=== PATIENT | male | born 1960 | race Caucasian/White ===

== ENCOUNTER → 2020-01-29 | Outpatient (CLI) | payer BC ==
[~2020-01-29] MED LIST: CATHETER FLUSH 10 ML SYR IV PRN; CIPR-17 PO; METR500T PO; OXYC-12 PO
--- NOTE | 2020-01-29 12:42 | Cardiology Stress Test Report ---
Stress Test Report Date of Procedure/Referring: Date of Procedure: Jan 29, 2020 PCP Antonio Nuñez DO Admitting Physician Antonio Nuñez DO Indications: Hypertension Summary: Patient receive a resting and stress dose of Myoview, images were acquired and reviewed in the short axis view, horizontal long axis view and vertical long axis view. TID: 1.09 SSS: 0 SDS: 0 EF: 61 1. Diaphragmatic attenuation with typical male pattern, mild decreased uptake at the inferior wall, no signal can ischemia was noted. 2. Normal left ventricular size and systolic function calculated ejection fraction 61 percent RANDOLPH EID MD Jan 29, 2020 12:42
== END ==
LOC: CARD 06:33
PROVIDERS: ATTEND Internal Medicine
DX: I10 Essential (primary) hypertension (principal)
CPT/HCPCS: 78452; 93017; A9502

== ENCOUNTER → 2022-09-28 | Outpatient (CLI) | payer BC ==
[~2022-09-28] MED LIST changes: -CATHETER FLUSH 10 ML SYR IV PRN
== END ==
LOC: CARD 07:29
PROVIDERS: ATTEND Internal Medicine
DX: R07.89 Other chest pain (principal)
CPT/HCPCS: 93017

== ENCOUNTER → 2022-10-14 | Outpatient (CLI) | payer BC ==
[~2022-10-14] MED LIST changes: +IOHEXOL 350 MG/ML 100 ML (OMNIPAQUE 350) VIAL IV ONE; +NITROGLYCERIN 0.4 MG SL TABS BTL 25'S SL ONE; +NS 100 ML (IVPB) BAG IV ONE
[2022-10-14 15:00] VITALS: BP 116/64
[2022-10-14 15:15] VITALS: BP 127/68
[2022-10-14 15:25] VITALS: BP 117/72
[2022-10-14 15:30] VITALS: BP 119/70
--- NOTE | 2022-10-14 16:48 | Diagnostic Imaging Report ---
EXAMINATION: CTA of the coronary arteries. TECHNIQUE: Contrast enhanced thin section helical images were obtained through the heart and coronary arteries with intravenous contrast timed for the optimal opacification of the coronary arterial structures per gated CTA protocol. Post-processing, reconstructions and interpretation of angiographic images of the vessels was performed. 3D MIP reconstructions were performed and reviewed. All CT scans use one or more of the following dose optimizing techniques: automated exposure control, MA and/or KvP adjustment based on a patient size and exam type, or iterative reconstruction. HISTORY: Coronary artery disease COMPARISON: None available. FINDINGS: There is circumferential calcified and noncalcified plaque in the left main coronary artery resulting in approximately 25% stenosis. There is a 75% stenosis of the proximal left anterior descending artery. There is additional plaque in the distal left anterior descending artery with approximately 30% stenosis. There is moderate stenosis of 60% of the origin of the circumflex artery. There is multifocal mild stenosis throughout the remainder of the circumflex artery. The right coronary artery is a small vessel with calcified plaque proximally resulting in at least mild stenosis but the lumen is partially obscured by the blooming artifact from calcifications. The coronary arteries are right dominant. There is no anomalous coronary artery origin or course. There is no myocardial bridging. There is no ventricular dilation or hypertrophy. Both atria are normal in size. Aorta is normal in caliber. There is no edema or pneumonia. No pleural effusion. No pneumothorax. No suspicious nodules. No pericardial effusion. There is no mediastinal lymphadenopathy. Limited views of the upper abdomen are unremarkable. There are no suspicious osseus lesions. IMPRESSION: 1. Calcified and noncalcified plaque in the left main coronary artery resulting in approximately 25% stenosis. 2. Multifocal disease in the left anterior descending artery with 75% stenosis proximally. 3. Moderate stenosis of approximately 60% of the origin of the circumflex artery. 4. Right coronary artery is a small vessel with calcified plaque proximally obscuring the lumen due to blooming artifact. Dictated by: Dictated on workstation # [id number]
== END ==
LOC: RAD 14:22
PROVIDERS: ATTEND Internal Medicine Cardiovascular Disease
DX: I25.10 Atherosclerotic heart disease of native coronary artery without angina pectoris (principal)
CPT/HCPCS: 75574

== ENCOUNTER 2022-10-21 09:00 | Day surgery (SDC) | payer BC ==
[~2022-10-21] VITALS: Ht 177.8 cm; Wt 72.3 kg
[2022-10-21] VITALS (8 sets, daily range): BP systolic 114–148; BP diastolic 63–91
[2022-10-21 07:22] LABS: HEMATOCRIT 44 % (40-54); HEMOGLOBIN 14.6 g/dL (13.3-17.7); MEAN CORPUSCULAR HEMOGLOBIN 29 pg (25-34); MEAN CORPUSCULAR HGB CONC 33 g/dL (32-36); MEAN CORPUSCULAR VOLUME 88 fL (80-99); MEAN PLATELET VOLUME 9.4 fL (9.0-12.2); PLATELET COUNT 221 10^3/uL (130-400); WHITE BLOOD COUNT 5.5 10^3/uL (4.3-11.0)
--- NOTE | 2022-10-21 07:43 | Diagnostic Imaging Report ---
EXAM: CHEST 1 VIEW, AP/PA ONLY INDICATION: Coronary artery disease. Chest pain. COMPARISON: None. FINDINGS: Normal heart size and central pulmonary vascularity. Lungs are clear. No pleural effusion or pneumothorax. No acute osseous findings. IMPRESSION: No acute cardiopulmonary findings. Dictated by: Dictated on workstation # [id number]
[2022-10-21 07:47] LABS: ALANINE AMINOTRANSFERASE 36 U/L (0-55); ALBUMIN 4.8 GM/DL (3.2-4.5); ALKALINE PHOSPHATASE 86 U/L (40-136); BUN/CREATININE RATIO 11; CALCIUM 9.4 MG/DL (8.5-10.1); CARBON DIOXIDE 27 MMOL/L (21-32); CHLORIDE 105 MMOL/L (98-107); CHOLESTEROL 127 MG/DL (< 200); CREATININE SERUM 0.98 MG/DL (0.60-1.30); GFR ESTIMATED 87; GLUCOSE 107 MG/DL (70-105); HDL CHOLESTEROL 38 MG/DL (40-60); POTASSIUM 3.8 MMOL/L (3.6-5.0); SODIUM 141 MMOL/L (135-145); TOTAL PROTEIN 7.9 GM/DL (6.4-8.2); TRIGLYCERIDES 87 MG/DL (<150); VLDL CHOLESTEROL 17 MG/DL (5-40)
[2022-10-21 07:53] LABS: BACTERIA,URINE NEGATIVE /HPF; BILIRUBIN,URINE NEGATIVE (NEGATIVE); CLARITY,URINE CLEAR; COLOR,URINE YELLOW; GLUCOSE, URINE (UA) NEGATIVE (NEGATIVE); KETONES,URINE NEGATIVE (NEGATIVE); LEUKOCYTE ESTERASE ,URINE NEGATIVE (NEGATIVE); NITRITE,URINE NEGATIVE (NEGATIVE); PROTEIN,URINE NEGATIVE (NEGATIVE); RBC,URINE RARE /HPF
[2022-10-21 08:01] LABS: PROTHROMBIN TIME PATIENT 13.8 SEC (12.2-14.7)
--- NOTE | 2022-10-21 08:32 | Cardiac Procedure Note-CS/ASA ---
Pre-Procedure Note Pre-Op Procedure Note Date of Available H&P: Oct 05, 2022 Date H&P Reviewed: Oct 21, 2022 Time H&P Reviewed: 08:32 History & Physical: H&P Reviewed, Patient Examed, No changes noted Pre-Operative Diagnosis: CAD Moderate Sedation PreProcedure Time 08:32 ASA Score 3 Airway Lungs Heart ASA score ASA 1: a normal healthy patient ASA 2: a patient with a mild systemic disease (mid diabetes, controlled hypertension, obesity ASA 3: a patient with a severe systemic disease that limits activity (angina, COPD, prior Myocardial infarction) ASA 4: a patient with an incapacitating disease that is a constant threat to life (CHF, renal failure) ASA 5: a moribund patient not expected to survive 24 hrs. (ruptured aneurysm) ASA 6: a declared brain- patient whose organs are being harvested. For emergent operations, add the letter E after the classification Mallampati Classification Grade 3 Sedation Plan Analgesia, Amnesia, Plan communicated to team members, Discussed options with patient/fam, Discussed risks with patient/fam The patient is an appropriate candidate to undergo the planned procedure, sedation, and anesthesia. The patient immediately re-assessed prior to indication. RANDOLPH EID MD Oct 21, 2022 08:32
[~2022-10-21 09:00] MED LIST changes: +ASPI-1238 PO; +ATOR20TA66 PO; +HEParin (CATH LAB) 2,000 ML IV ONE; +HEParin 1000 UNIT/ML (10ML VIAL) FOR BOLUS ONE; -IOHEXOL 350 MG/ML 100 ML (OMNIPAQUE 350) VIAL IV ONE; +LIDOCAINE 1% INJ 20 ML VIAL ONE; +LOSA50TA63 PO; +MIDAZOLAM 5 MG/5 ML (VERSED) VIAL ONE; +NITRO DRIP 25000 MCG/D5W 250 ML IV ONE; -NITROGLYCERIN 0.4 MG SL TABS BTL 25'S SL ONE; -NS 100 ML (IVPB) BAG IV ONE; +NS IV 1000 ML 1,000 ML IV SCH; +NS IV 1000 ML 1,000 ML ONE; +VERAPAMIL 5 MG/2 ML (CALAN) VIAL IV ONE; +fentaNYL INJ 100 MCG/2 ML AMP ONE
--- NOTE | 2022-10-21 09:27 | Discharge Inst-Post CATH ---
Discharge Inst-CATH/EP Problems Reviewed?: Yes Post Cardiac Cath/EP D/C Inst Follow Up/Plan Appointment with Dr Borrero in 4 weeks <b>CARDIAC CATH/EP PROCEDURE DISCHARGE INSTRUCTIONS</b> ACTIVITY * Go Home directly and rest. * Limit activity of the leg (or wrist if it was used) for 7 days including aerobics, swimming, jogging, bicycling, etc. * Restrict stair-climbing for 7 days if possible, if not, climb up with your non-cath leg, then bring together on the same step. * Avoid lifting, pushing, pulling or excessive movement of the affected extremity for 7 days. * Customary sexual activity may be resumed after 2 days-use caution not to use a position that strains or causes pain to the affected extremity. * No driving for 24 hours. * NO SMOKING. * Avoid straining for bowel movements for 7 days. * Gentle walking on level ground is allowed. * Returning to work will depend on the type of procedure and the results. Your doctor will discuss this with you. CALL YOUR DOCTOR FOR ANY OF THE FOLLOWING: *If bleeding from the puncture site occurs- Apply gentle pressure to site with clean cloth and call your doctor or EMS. * If a knot or lump forms under the skin, increases in size, or causes pain. * If bruising appears to be worsening or moving further down your leg instead of disappearing. * Temperature above 101 F. CARE OF YOUR GROIN INCISION; * Bruising or purple discoloration of the skin near the puncture site is common. * You may shower only, no bathtub bathing for 5 days. Be careful to avoid slipping as your leg may feel stiff. * If a closure device was used on your femoral artery, please see the attached guide regarding care of the device and your leg. * Leave dressing on FOR 24 hours. CARE OF YOUR WRIST INCISION; * Bruising or purple discoloration of the skin near the puncture site is common. * You may shower. * DO NOT submerge wrist. * Leave dressing on FOR 24 hours. RANDOLPH BORRERO MD Oct 21, 2022 09:27
[2022-10-21] MEDS ORDERED: NS IV 1000 ML 1,000 ML IV SCH (09:30)
--- NOTE | 2022-10-21 09:50 | Cardiac Cath Report ---
Cardiac Cath Report Physician (s)/Coroner'S Juror (s) Physician RANDOLPH EID MD Pre-Procedure Diagnosis Pre-Procedure Diagnosis: CAD Post-Procedure Note Procedure Start Date: Oct 21, 2022 Name of Procedure: Cardiac catheterization IFR to LAD IFR to LCX Findings/Procedure Note PROCEDURE NOTE: 62-year-old gentleman with recurrent chest pain, had abnormal CT angiogram of the coronaries suggestive of 75% stenosis in the LAD and 65% stenosis at the circumflex artery. Scheduled for cardiac catheterization possible PTCA. After explaining the procedure to the patient, all pros and cons were explained, all questions were answered. The patient signed the consent and then he was placed in the cardiac catheterization laboratory. Groin was prepped in SL fashion local anesthesia was used. Sheath placed in the right radial artery, Scenic catheter was advanced to the left ventricular cavity, pressure was measured, pullback LV to aorta was done, engage the right and left coronary system, angiogram was done. Patient received a total of 6000 units of heparin, had multiple lesions in the LAD and the circumflex artery. Mehnaz left guide was used and IFR wire was advanced and parked in the distal LAD. Spot IFR to the distal LAD was 0.89. Spot IFR to the mid LAD was 0.95 The wire was pulled back and redirected in the circumflex artery and placed dis tally, spot IFR was 0.7 The wire was removed, angiogram showed no complication. At the end of the procedure the sheath was removed. Vascular band was used FINDINGS: Hemodynamics LV 104/14, end-diastolic pressure of 14 Aorta 104/67 mean of 83 ANATOMY: Left Main is free of obstructive disease Left Anterior Descending has 2 lesions, 50% stenosis proximally, 70% stenosis at the mid LAD, IFR at the distal LAD was 0.89 Left Circumflex is dominant artery with 70% stenosis proximally and a lesion involving the ostium of a large first obtuse marginal branch, the first obtuse marginal branch has 80% stenosis proximally, IFR through the OM was 0.7 Right Coronary Artery is nondominant artery with 70% stenosis at the mid LV Gram was not done, normal left ventricular end-diastolic pressure Dominance left circumflex artery CONCLUSION: Multivessel coronary artery disease involving 70% stenosis in the mid LAD, 70% stenosis proximal circumflex artery, 80% stenosis proximal obtuse marginal branch, 70% stenosis mid nondominant right coronary artery Normal left ventricular end-diastolic pressure DISCUSSION AND RECOMMENDATION: Patient has multivessel coronary artery disease, recommend evaluation for bypass surgery. Patient will be arranged for evaluation at as an outpatient Anesthesia Type: Conscious Sedation Estimated blood loss (mL): 15 ml Contrast Amount: 63 ml Total Radiation Dose: 333 mGy Post-Procedure Diagnosis Post-operative diagnosis: Chest pain Coronary artery disease Hypertension Hyperlipidemia RANDOLPH EID MD Oct 21, 2022 09:50
== END 2022-10-21 12:00 ==
LOC: CATH 09:00 → SDC 09:48 → CATH 12:00
PROVIDERS: ATTEND Internal Medicine Cardiovascular Disease
DX: I25.10 Atherosclerotic heart disease of native coronary artery without angina pectoris (principal); I10 Essential (primary) hypertension; E78.2 Mixed hyperlipidemia; Z28.310 Unvaccinated for COVID-19; Z90.89 Acquired absence of other organs
CPT/HCPCS: 71045; 80053; 80061; 81000; 85027; 85347; 85610; 85730; 87081; 93005; 93458; 93571; 93572; C1769; C1887; C1894; 36415

== ENCOUNTER → 2022-12-25 | Outpatient (RCR) | payer BC ==
[~2022-12-25] MED LIST changes: -HEParin (CATH LAB) 2,000 ML IV ONE; -HEParin 1000 UNIT/ML (10ML VIAL) FOR BOLUS ONE; -LIDOCAINE 1% INJ 20 ML VIAL ONE; -MIDAZOLAM 5 MG/5 ML (VERSED) VIAL ONE; -NITRO DRIP 25000 MCG/D5W 250 ML IV ONE; -NS IV 1000 ML 1,000 ML IV SCH; -NS IV 1000 ML 1,000 ML ONE; -VERAPAMIL 5 MG/2 ML (CALAN) VIAL IV ONE; -fentaNYL INJ 100 MCG/2 ML AMP ONE
== END | disposition home or self-care (01) ==
LOC: CR 12-09 07:52
PROVIDERS: ATTEND Surgery
DX: Z29.8 Encounter for other specified prophylactic measures (principal); I25.118 Atherosclerotic heart disease of native coronary artery with other forms of angina pectoris
CPT/HCPCS: 93798

== ENCOUNTER 2023-01-22 08:18 | Outpatient (RCR) | payer BC | END 2023-01-25 | disposition home or self-care (01) | LOC: CR 08:18 | PROVIDERS: ATTEND Surgery | DX: Z29.8 Encounter for other specified prophylactic measures (principal); I25.118 Atherosclerotic heart disease of native coronary artery with other forms of angina pectoris; Z98.1 Arthrodesis status | CPT/HCPCS: 93798 ==